=== PATIENT | female | born 2000 | race Caucasian/White ===

== ENCOUNTER 2024-02-22 15:20 | Emergency (ER) | payer MEDICAID ==
[~2024-02-22] VITALS: Ht 167.6 cm; Wt 136.1 kg
[2024-02-22 15:29] VITALS: O2SAT 100
[2024-02-22] MEDS: TETANUS, DIPHTHERIA, PERTUSSIS VAC/PF 0.5ML (>10YR OLD) IM ONE (17:30)
[2024-02-22 18:00] VITALS: BP 120/77; PULSE 98; RESP 17; TEMP 98.1
[2024-02-22] MEDS: BACITRACIN ZINC OINT UDPKT TOP ONE (18:04)
== END 2024-02-22 18:21 | disposition home or self-care (01) ==
LOC: ER 15:20
DX: S60.410A Abrasion of right index finger, initial encounter (principal); X58.XXXA Exposure to other specified factors, initial encounter; Y93.89 Activity, other specified; Y92.89 Other specified places as the place of occurrence of the external cause; Y99.8 Other external cause status
CPT/HCPCS: 81025; 90471; 90715; 99283